=== PATIENT | male | born 1970 | race Caucasian/White ===

== ENCOUNTER 2022-10-31 21:49 | Inpatient (IN) | payer OTHER ==
[~2022-10-31] VITALS: Ht 167.6 cm; Wt 59.9 kg
--- NOTE | 2022-10-31 22:03 | NUR ---
Dr. Lawrence evaluated patient at bedside. MSE in progress.
[2022-10-31] MEDS ORDERED: ASPIRIN 81 MG TAB.CHEW PO ONE (22:15)
[2022-10-31] MEDS ORDERED: ASPIRIN 81 MG TAB.CHEW ONE (22:18)
[2022-10-31 22:27] LABS: HEMATOCRIT 42.3 % (36.7-47.1); MEAN CORPUSCULAR HEMOGLOBIN 29.6 uug (23.8-33.4); MEAN CORPUSCULAR VOLUME 88.8 fL (73.0-96.2); PLATELET COUNT (AUTO) 311 K/uL (152-348)
--- NOTE | 2022-10-31 22:37 | NUR ---
Xray at bedside
[2022-10-31 22:41] LABS: MAGNESIUM 1.9 mg/dL (1.8-2.4)
[2022-10-31 22:44] LABS: CARBON DIOXIDE 21 mmol/L (21-32); CHLORIDE 107 mmol/L (98-107); CREATININE 1.4 mg/dL (0.6-1.3); GLUCOSE 127 mg/dL (74-106); POTASSIUM 4.6 mmol/L (3.5-5.1); UREA NITROGEN, BLOOD 20 mg/dL (7-18)
[2022-10-31 22:53] LABS: THYROID STIMULATING HORMONE 3.241 mIU/mL (0.358-3.740)
[2022-10-31] MEDS ORDERED: MAGNESIUM SULFATE/D5W 100 ML ONE ×2 (23:00→23:21)
[2022-10-31] MEDS ORDERED: IV NS 1000 ML 1,000 ML IV ONE (23:00)
[2022-10-31 23:03] LABS: ALANINE AMINOTRANSFERASE 140 U/L (16-63); ALKALINE PHOSPHATASE 71 U/L (50-136); ASPARTATE AMINOTRANSFERASE 57 U/L (15-37); BILIRUBIN,DIRECT 0.4 mg/dL (0.0-0.2); BILIRUBIN,TOTAL 1.3 mg/dL (0.2-1.0); TOTAL PROTEIN, SERUM 6.6 g/dL (6.4-8.2)
[2022-10-31] MEDS: MAGNESIUM SULFATE/D5W 100 ML IV SCH (23:05)
[2022-11-01] MEDS: MAGNESIUM SULFATE/D5W 100 ML IV SCH ×2 (00:22)
--- NOTE | 2022-11-01 01:15 | NUR ---
Patient has been accepted by Mike CARLSON
[2022-11-01] MEDS ORDERED: NITROGLYCERIN 0.4 MG/TAB BOTTLE SL PRN (01:30)
[2022-11-01] MEDS ORDERED: REMEDY ESSENTIAL ZINC PASTE 113 GM TP PRN (01:30)
[2022-11-01] MEDS ORDERED: ONDANSETRON 4 MG/2 ML VIAL IV PRN (01:30)
[2022-11-01] MEDS ORDERED: HYDROCODONE/APAP 5-325MG TABLET PO PRN (01:30)
[2022-11-01] MEDS ORDERED: MORPHINE SULFATE 2 MG/1 ML DISP.SYRIN IV PRN ×2 (01:30→05:52)
[2022-11-01] MEDS ORDERED: TEMAZEPAM 15 MG CAPSULE PO PRN (01:30)
[2022-11-01] MEDS ORDERED: FUROSEMIDE 40 MG/4 ML VIAL IV ONE (01:30)
[2022-11-01] MEDS ORDERED: FUROSEMIDE 40 MG/4 ML VIAL ONE (01:31)
--- NOTE | 2022-11-01 02:18 | NUR ---
Report given to Deng BERMUDEZ.
--- NOTE | 2022-11-01 03:54 | NUR ---
Patient taken to third floor room 314 via gurney with personal belongings. Patient in stable condition, no signs of distress. Deng RN aware of patients arrival.
[2022-11-01 04:00] VITALS: BP 117/87
[2022-11-01] MEDS ORDERED: ENOXAPARIN SODIUM 40 MG/0.4 ML DISP.SYRIN SQ SCH (04:00)
[2022-11-01] MEDS ORDERED: no home meds (04:09)
[2022-11-01] MEDS: PANTOPRAZOLE SODIUM 40 MG TABLET.DR PO SCH (06:38)
[2022-11-01 07:27] LABS: MAGNESIUM 2.2 mg/dL (1.8-2.4); PHOSPHOROUS 4.7 mg/dL (2.5-4.9)
[2022-11-01 07:28] LABS: *AMPHETAMINE, URINE NEGATIVE (NEGATIVE); *CANNABINOID, URINE NEGATIVE (NEGATIVE); *COCCAINE, URINE NEGATIVE (NEGATIVE); *PHENCYCLIDINE SCREEN,URINE NEGATIVE (NEGATIVE)
--- NOTE | 2022-11-01 08:12 | NUR ---
critical lab value reported from lab. Trop-101. dr. mcclendon made aware. Addendum: 11/01/22 at 0953 by ZIA GIL RN odin patel
[2022-11-01] MEDS: FUROSEMIDE 40 MG/4 ML VIAL IV SCH ×2 (08:30→17:15)
[2022-11-01] MEDS: ASPIRIN 81 MG TAB.CHEW PO SCH (08:31)
[2022-11-01] MEDS: ENOXAPARIN SODIUM 40 MG/0.4 ML DISP.SYRIN SQ SCH (08:33)
[2022-11-01] MEDS ORDERED: FUROSEMIDE 40 MG/4 ML VIAL IV SCH (09:00)
[2022-11-01 09:55] LABS: THYROID STIMULATING HORMONE 3.983 mIU/mL (0.358-3.740)
[2022-11-01 09:57] LABS: CREATININE 1.2 mg/dL (0.6-1.3); POTASSIUM 4.9 mmol/L (3.5-5.1)
[2022-11-01 11:21] VITALS: BP 112/78
--- NOTE | 2022-11-01 15:22 | NUR ---
critical lab value reported. trop-216. dr. mcclendon made aware. no new order at this time.
--- NOTE | 2022-11-01 15:27 | NUR ---
1. Addendum: 11/01/22 at 1528 by ZIA GIL RN 1.2 L fluid restriction and strict I&O per dr. mcclendon
[2022-11-01 16:11] LABS: CREATININE 1.5 mg/dL (0.6-1.3)
[2022-11-01 16:34] VITALS: BP 142/49
[2022-11-01 16:48] LABS: HEMATOCRIT 39.5 % (36.7-47.1); MEAN CORPUSCULAR HEMOGLOBIN 29.7 uug (23.8-33.4); MEAN CORPUSCULAR VOLUME 89.9 fL (73.0-96.2); PLATELET COUNT (AUTO) 267 K/uL (152-348)
--- NOTE | 2022-11-01 19:41 | NUR ---
pt aox4. denies any pain. ambulatory. still on lasix 40mg iv bid. good urine output. all needs attended. safety measure in placed. will endorsed to noc shift.
[2022-11-01 20:00] VITALS: BP 113/84
[2022-11-01] MEDS: ATORVASTATIN 40 MG TABLET PO SCH (20:17)
[2022-11-01] MEDS: MAGNESIUM HYDROXIDE 30 ML LIQUID UDC PO PRN (21:44)
--- NOTE | 2022-11-01 22:30 | NUR ---
Pt complained of nausea and dizziness. Administered Zofran as ordered. Pt also complained of constipation. Given Milk of magnesia as ordered. After an hour, pt reported relief from the symptoms. Will continue to monitor.
[2022-11-02] VITALS: BP 102/71
[2022-11-02] MEDS: ACETAMINOPHEN 325 MG TABLET PO PRN ×2 (03:30→16:55)
[2022-11-02 04:00] VITALS: BP 126/84
[2022-11-02] MEDS: PANTOPRAZOLE SODIUM 40 MG TABLET.DR PO SCH (06:03)
[2022-11-02 07:01] LABS: BILIRUBIN,TOTAL 0.9 mg/dL (0.2-1.0); CREATININE 1.4 mg/dL (0.6-1.3); MAGNESIUM 2.4 mg/dL (1.8-2.4); PHOSPHOROUS 5.1 mg/dL (2.5-4.9); POTASSIUM 4.9 mmol/L (3.5-5.1); TOTAL PROTEIN, SERUM 6.4 g/dL (6.4-8.2)
--- NOTE | 2022-11-02 07:15 | NUR ---
Received critical lab for Troponin 509. Dr. Carter was made aware. No new orders.
[2022-11-02 08:00] VITALS: BP 131/81
--- NOTE | 2022-11-02 08:00 | NUR ---
Received patient lying in bed awake, alert and oriented. No signs of distress, SR on tele monitor. Pt. on room air saturating at 98%. IV site on left AC intact and clean. No complain made. Needs attended
[2022-11-02] MEDS: ENOXAPARIN SODIUM 40 MG/0.4 ML DISP.SYRIN SQ SCH (08:26)
[2022-11-02] MEDS: ASPIRIN 81 MG TAB.CHEW PO SCH (08:27)
[2022-11-02] MEDS: FUROSEMIDE 40 MG/4 ML VIAL IV SCH ×2 (08:27→20:49)
[2022-11-02] MEDS ORDERED: FUROSEMIDE 40 MG/4 ML VIAL IV SCH (09:00)
--- NOTE | 2022-11-02 09:00 | NUR ---
Medications given and tolerated. Seen and examined by Dr. Malloy with orders made and carried out
--- NOTE | 2022-11-02 09:33 | NUR ---
ceart and BUN high for CT Angio Chest. In formed RN.
[2022-11-02] MEDS ORDERED: SWABABLE VALVE TRANSFER SET EA MC ONE (09:42)
[2022-11-02] MEDS ORDERED: IOHEXOL 350 100 ML INFUS..BTL ONE (09:42)
[2022-11-02] MEDS ORDERED: IV NORMAL SALINE 250 ML IV ONE (09:42)
--- NOTE | 2022-11-02 10:04 | NUR ---
consult requested to assess patient's living situation. Patient is a 52 year old male that presents with depressed mood and congruent affect. Patient states his primary contact is the patient's significant other, Emilee Cruz ([phone]) and the patient lives with her at [address] [place] [address] in a one story house. Patient states he is currently unemployed and not driving. Patient denies a history of substance abuse and a history of psychiatric diagnosis. The toxicology report is negative. Patient denies suicidal or homicidal ideation. Patient states his plan for discharge is for his significant other Emilee Cruz ([phone]) take him home to [address] [place] [address].
--- NOTE | 2022-11-02 10:11 | NUR ---
RN TO CALL RADIOLOGY DEPARTMENT WHEN PT IS READY
--- NOTE | 2022-11-02 10:29 | NUR ---
ORDER TO CHANGE FFOR SATURDAY. PER CONVERSATION WITH PATIENT SAYING TO DO SATURDAY
--- NOTE | 2022-11-02 10:29 | NUR ---
COMPOSING ROOM SUPERVISOR HAS BEEN NOTIFIED, AND I TRANSFERRED HER CALL TO THIRD FLOOR TO SPEAK TO THE PATIENT'S NURSE.
--- NOTE | 2022-11-02 11:40 | NUR ---
Patient for Pulmonary VQ scan, signed consent for the procedure. Brought to nuclear medicine via wheel chair.
[2022-11-02 11:43] VITALS: BP 124/83
--- NOTE | 2022-11-02 12:30 | NUR ---
Patient with strict I and O monitoring and fluid restriction of 1.2L/day. Monitored patient from time to time. Needs attended, no acute changes from morning assessment.
[2022-11-02 15:50] VITALS: BP 115/83
--- NOTE | 2022-11-02 16:50 | NUR ---
Patient complaining of mild pain on the chest area pain score of 5, Tylenol 650mg tab given as ordered. Observed patient accordingly. Keep rested and comfortable.
[2022-11-02 20:00] VITALS: BP 127/80
[2022-11-02] MEDS: ATORVASTATIN 40 MG TABLET PO SCH (20:49)
[2022-11-02] MEDS ORDERED: FUROSEMIDE 20 MG/2 ML VIAL IV SCH (21:00)
[2022-11-03] VITALS: BP 109/73
[2022-11-03 04:00] VITALS: BP 100/72
[2022-11-03] MEDS: PANTOPRAZOLE SODIUM 40 MG TABLET.DR PO SCH (06:13)
[2022-11-03 07:09] LABS: HEMATOCRIT 45.6 % (36.7-47.1); MEAN CORPUSCULAR VOLUME 88.7 fL (73.0-96.2); PLATELET COUNT (AUTO) 320 K/uL (152-348)
[2022-11-03] MEDS: FUROSEMIDE 40 MG/4 ML VIAL IV SCH (08:12)
[2022-11-03] MEDS: ASPIRIN 81 MG TAB.CHEW PO SCH (08:12)
[2022-11-03] MEDS: ENOXAPARIN SODIUM 40 MG/0.4 ML DISP.SYRIN SQ SCH (08:13)
[2022-11-03 09:01] LABS: BILIRUBIN,TOTAL 1.3 mg/dL (0.2-1.0); CREATININE 1.5 mg/dL (0.6-1.3); MAGNESIUM 2.7 mg/dL (1.8-2.4); PHOSPHOROUS 4.6 mg/dL (2.5-4.9); POTASSIUM 5.3 mmol/L (3.5-5.1); TOTAL PROTEIN, SERUM 7.5 g/dL (6.4-8.2)
[2022-11-03] MEDS: METOPROLOL SUCCINATE XL 25 MG TAB.SR.24H PO SCH (10:05)
[2022-11-03] MEDS ORDERED: SODIUM POLYSTYRENE SULFONATE 15 G/60 ML LIQUID UDC PO ONE (11:15)
[2022-11-03 12:15] VITALS: BP 98/66
[2022-11-03 16:19] VITALS: BP 108/77
[2022-11-03 20:00] VITALS: BP 103/69
--- NOTE | 2022-11-03 20:00 | NUR ---
RECD PT IN BED, ON A SITTING POSITION, NO ACUTE DISTRESS NOTED, FAMILY AT BEDSIDE, ON TELE SINUS TACH 100,STRICT I AND O OBSERVED
[2022-11-03] MEDS: ATORVASTATIN 40 MG TABLET PO SCH (20:22)
--- NOTE | 2022-11-04 | NUR ---
NO C/O CHEST PAIN, AMBULATEDAROUND THE ROOM, TOLERATED IT WELL,STILL ON TELE SR 88.
[2022-11-04 00:22] VITALS: BP 95/65
[2022-11-04] MEDS: ACETAMINOPHEN 325 MG TABLET PO PRN (01:18)
--- NOTE | 2022-11-04 01:28 | NUR ---
MEDICATED W/ TYLENOL 2 TABS P.O. ORDERED FOR HEADACHE.COPMLIANT TO STRICT INTAKE AND OUTPUT REGIMEN. SLEPT ON AND OFF.
--- NOTE | 2022-11-04 03:54 | NUR ---
SOUND ASLEEP AT THIS TIME. NO DISTRESS NOTED, ON TELE SR 88, ASYMPTOMATIC FROM ANY SSX OF CHEST PAIN /
[2022-11-04 06:09] LABS: HEMATOCRIT 46.1 % (36.7-47.1); MEAN CORPUSCULAR HEMOGLOBIN 29.4 uug (23.8-33.4); MEAN CORPUSCULAR VOLUME 88.7 fL (73.0-96.2); PLATELET COUNT (AUTO) 288 K/uL (152-348)
--- NOTE | 2022-11-04 06:13 | NUR ---
ENDORSED TO AM NURSE IN FAIR CONDITION.HEADACHE WAS RELIEVED. HAD A QUIET NOC..
[2022-11-04] MEDS: PANTOPRAZOLE SODIUM 40 MG TABLET.DR PO SCH (06:20)
[2022-11-04 06:30] LABS: BILIRUBIN,TOTAL 1.2 mg/dL (0.2-1.0); CREATININE 1.2 mg/dL (0.6-1.3); MAGNESIUM 2.6 mg/dL (1.8-2.4); PHOSPHOROUS 4.4 mg/dL (2.5-4.9); POTASSIUM 4.5 mmol/L (3.5-5.1); TOTAL PROTEIN, SERUM 7.4 g/dL (6.4-8.2)
--- NOTE | 2022-11-04 07:10 | NUR ---
pt received in bed awake no c/o pain noted call light with in reach ,all needs met at this time we will continue to monitor
[2022-11-04] MEDS: ASPIRIN 81 MG TAB.CHEW PO SCH (08:25)
[2022-11-04] MEDS: FUROSEMIDE 40 MG TABLET PO SCH (08:25)
[2022-11-04] MEDS: METOPROLOL SUCCINATE XL 25 MG TAB.SR.24H PO SCH (08:25)
[2022-11-04] MEDS: ENOXAPARIN SODIUM 40 MG/0.4 ML DISP.SYRIN SQ SCH (08:26)
[2022-11-04 12:00] VITALS: BP 106/74
[2022-11-04 16:00] VITALS: BP 101/58
--- NOTE | 2022-11-04 16:50 | NUR ---
pt came to the nursing station asking water for the pt went with cup of water to the pt room ,pt and hid said no not cup of water he wants full pitcher of water try to explain to the pt and his pt is on 1200 fluids restriction pt get very upset and start saying in anger i know what i needs to do then pt in anger start talk to his in his language
--- NOTE | 2022-11-04 17:42 | NUR ---
pt is on 1200 fluids restriction and pt is on strict in take out put pt is refusing to follow the md orders ,try to explain to the pt,instruction for cta heart do not drink [id number] hrs before the test pt is getting upset and yelling and cursing bad word and saying get the fuck out of here who are you telling me this i am dying with the heart problem i dont care i will eat and drink water charge nurse and nursing explosive operator supervisor notified.
[2022-11-04 18:42] VITALS: BP 123/80
--- NOTE | 2022-11-04 18:47 | NUR ---
student nurse came to nursing station and reported that patient fell on floor. this copywriter went to room to assess the patient, patient was already in bed, laying down on bed comfortably, no sob, respirations are even nonlabored, sinus rhythm, no changes noted on tele monitor, skin warm and dry to touch, asked patient to follow the neuro check, patient is looking funny on us and does not want to follow the neuro check, however responsive to verbal stimuli, vitals take bp 123/80, pulse 99, respirations 18, o2 sat 100% room air, and all extremities are with in normal range, denies any pain, no clinical indication for any injury. MD Carter notified. patient also ate food from outside, ordered himself, non compliant with diet restrictions, even upon teaching and reminding multiple times.
[2022-11-04 19:00] VITALS: BP 120/80
[2022-11-04 20:00] VITALS: BP 114/73
[2022-11-04] MEDS: ATORVASTATIN 40 MG TABLET PO SCH (20:07)
--- NOTE | 2022-11-04 20:10 | NUR ---
REASSESSED PATIENT. PATIENT SITTING IN CHAIR NEXT TO BEDSIDE. ASK THE PATIENT THE PATIENT IF HE IS DOING OKAY. PATIENT STATED "YES." SPEECH WAS CLEAR. NO COMPLAINT OF PAIN. NO DIZZINESS REPORTED. ALL NEEDS MET AT THIS TIME. ENDORSED CARE TO ASSISTANT PROFESSOR OF MARINE BIOLOGY RN.
[2022-11-04 21:49] LABS: HEMATOCRIT 45.5 % (36.7-47.1); MEAN CORPUSCULAR HEMOGLOBIN 29.2 uug (23.8-33.4); MEAN CORPUSCULAR VOLUME 88.6 fL (73.0-96.2); PLATELET COUNT (AUTO) 311 K/uL (152-348)
[2022-11-04 22:09] LABS: CREATININE 1.3 mg/dL (0.6-1.3); POTASSIUM 4.6 mmol/L (3.5-5.1)
--- NOTE | 2022-11-04 22:30 | NUR ---
Seen pt laying on the bed. Alert and oriented x 3. Slow to speech but answers correctly. Per , pt is unable to recognize his children and slurring of speech. Daughter and 's sister at bedside as well. is stating that pt is having a stroke. Assessed pt for stroke. PERRLA, no slurred speech, no facial drooping, able to answer how many fingers, no blurred vision, able to ambulate to the bathroom, has stable gait, able to move upper and lower extremities, no numbness or weakness noted. Vital signs stable. No changes on Tele. SR with HR of 92. On room air, no respiratory distress noted. Denies pain or discomfort. Asked how he is feeling, answered he was okay. Another RN did the same assessment. Jalil CARLSON made aware. Ordered for STAT CT head, CXR, labs. Called [facility] for stat procedures, spoke to Jose, called lab for stat labs. Explained to what the doctor ordered. wants to transfer pt to a different hospital. Explained to her the process. Also spoke to the locomotive supervisor, also explained the process again. is calling the insurance. CT head, CXR , labs are done and pending for results. Product Marketing Manager also did the neuro check. Pt able to answer the questions correctly to name, date, place, name of the president and no weakness noted. Will continue to monitor. Safety precautions maintained.
[2022-11-04 23:06] LABS: *BILIRUBIN,URIN NEGATIVE (NEGATIVE); *BLOOD, URINE NEGATIVE (NEGATIVE); *CLARITY,URINE CLEAR (CLEAR); *COLOR,URINE YELLOW (YELLOW); *KETONES,URINE NEGATIVE (NEGATIVE); LEUKOCYTE ESTERASE ,URINE NEGATIVE (NEGATIVE); NITRITE, URINE NEGATIVE (NEGATIVE); UGLUCOSE NEGATIVE (NEGATIVE)
[2022-11-04 23:07] LABS: BACTERIA,URINE NONE SEEN /HPF (NONE SEEN); RBC,URINE 0-3 /HPF (0-3); SQUAMOUS EPITHELIAL CELL,UR NONE SEEN /HPF (NONE SEEN); WBC,URINE 0-3 /HPF (0-3)
[2022-11-05] VITALS: BP 110/75
--- NOTE | 2022-11-05 00:30 | NUR ---
is at bedside. Waiting for results stated that she wouldn't leave until there's a result or with the pt to transfer him to a different hospital. Informed pt and of CT head, CXR and labs result. is raising her voice saying but why is her worse than he was. RN performed neuro check again. Pt now keeps on answering I don't know to my questions. I reported this to Mike CARLSON Epic associate professor of education at this time. All test has already been done no other tests will be done unless the previous CT showed otherwise. Went back to the room explaining this to them. Patient began explaining to me what went on during the day when they had an argument with the nurse saying his side of the story asking if it was documented and he wants his to stay with him tonight. stated that she wouldn't leave the pt to keep an eye on him. asked me to tell egg caser that she is waiting for him to start the transfer. Per Mike CARLSON, If pt's family insisted they can sign AMA. All needs attended.
[2022-11-05 04:00] VITALS: BP 93/66
[2022-11-05] MEDS: PANTOPRAZOLE SODIUM 40 MG TABLET.DR PO SCH (06:16)
[2022-11-05 07:11] LABS: HEMATOCRIT 44.3 % (36.7-47.1); MEAN CORPUSCULAR HEMOGLOBIN 29.1 uug (23.8-33.4); MEAN CORPUSCULAR VOLUME 89.2 fL (73.0-96.2); PLATELET COUNT (AUTO) 304 K/uL (152-348)
[2022-11-05 07:42] LABS: BILIRUBIN,TOTAL 0.8 mg/dL (0.2-1.0); CREATININE 1.1 mg/dL (0.6-1.3); POTASSIUM 4.6 mmol/L (3.5-5.1); TOTAL PROTEIN, SERUM 7.3 g/dL (6.4-8.2)
--- NOTE | 2022-11-05 07:45 | NUR ---
Awake, alert, oriented x 4. Denies chest pain or shortness of breath. Feeling anxious. at bedside. Re instructed of NPO. Agreeable with CTA cardiac.
[2022-11-05] MEDS: ASPIRIN 81 MG TAB.CHEW PO SCH (09:11)
[2022-11-05] MEDS: FUROSEMIDE 40 MG TABLET PO SCH (09:11)
[2022-11-05] MEDS: METOPROLOL SUCCINATE XL 25 MG TAB.SR.24H PO SCH (09:12)
[2022-11-05 10:02] LABS: *AMPHETAMINE, URINE NEGATIVE (NEGATIVE); *CANNABINOID, URINE NEGATIVE (NEGATIVE); *COCCAINE, URINE NEGATIVE (NEGATIVE); *PHENCYCLIDINE SCREEN,URINE NEGATIVE (NEGATIVE)
[2022-11-05 11:39] VITALS: BP 99/67
--- NOTE | 2022-11-05 11:45 | NUR ---
Urine Tox screen sent to lab. NPO maintained. To [facility] via ambulance for MRI Brain and CTA cardiac
--- NOTE | 2022-11-05 14:40 | NUR ---
Back from [facility]. MRI brain and CTA cardiac done. Placed back on [facility]. Neuro checks done. Vital signs taken and recorded. Swallow eval done. Diet resumed.
[2022-11-05 15:34] VITALS: BP 119/86
[2022-11-05 16:29] LABS: THYROID STIMULATING HORMONE 5.327 mIU/mL (0.358-3.740)
[2022-11-05] MEDS: APIXABAN 5 MG TABLET PO SCH (17:48)
--- NOTE | 2022-11-05 17:57 | NUR ---
Seen by neurologist, explained condition to patient and . Cleared to give Eliquis, started.
[2022-11-05] MEDS: MAGNESIUM HYDROXIDE 30 ML LIQUID UDC PO PRN (18:48)
[2022-11-05] MEDS: MIRALAX 17 GM POWD.PACK PO PRN (19:15)
--- NOTE | 2022-11-05 19:15 | NUR ---
No BM x 2 days. Miralax po given as ordered. Endorsed for further care
[2022-11-05 20:00] VITALS: BP 101/72
[2022-11-05] MEDS: ATORVASTATIN 40 MG TABLET PO SCH (21:54)
[2022-11-06] VITALS: BP 93/69
[2022-11-06 04:00] VITALS: BP 100/75
[2022-11-06] MEDS: PANTOPRAZOLE SODIUM 40 MG TABLET.DR PO SCH (06:24)
[2022-11-06 06:58] LABS: MEAN CORPUSCULAR HEMOGLOBIN 29.3 uug (23.8-33.4); MEAN CORPUSCULAR VOLUME 88.1 fL (73.0-96.2); PLATELET COUNT (AUTO) 333 K/uL (152-348)
[2022-11-06 07:26] LABS: BILIRUBIN,TOTAL 1.1 mg/dL (0.2-1.0); CREATININE 1.3 mg/dL (0.6-1.3); POTASSIUM 4.8 mmol/L (3.5-5.1); TOTAL PROTEIN, SERUM 7.9 g/dL (6.4-8.2)
--- NOTE | 2022-11-06 07:30 | NUR ---
REPORT GIVEN TO LARA SHETH
[2022-11-06 09:36] VITALS: BP 110/74
[2022-11-06] MEDS: FUROSEMIDE 40 MG TABLET PO SCH (09:38)
[2022-11-06] MEDS: METOPROLOL SUCCINATE XL 25 MG TAB.SR.24H PO SCH (09:39)
[2022-11-06] MEDS: APIXABAN 5 MG TABLET PO SCH (09:40)
--- NOTE | 2022-11-06 11:02 | NUR ---
SW consult requested for stroke resources. Patient presents with anxious mood and congruent affect. Patient is alert and oriented X4. Patient was with his at bedside during the assessment. SW completed a PHQ 9 Screening with the patient, and he scored a 1. Patient states he had trouble sleeping last night. SW provided stroke education and give stroke resources. SW placed resources in patients chart. SW provided the patient with information about applying for disability as well. SW provided emotional support, validation, and coping strategies and the patient states taoism is very important to him.
[2022-11-06 11:34] VITALS: BP 110/60
--- NOTE | 2022-11-06 12:01 | NUR ---
SW consult requested for IHSS information. SW spoke with the patient and the patient's at bedside and provided them with the application for IHSS and information on how to fill it out and where to submit the application. Patient was appreciative of the resource and SW informed nurse, Rashel.
[2022-11-06] MEDS ORDERED: FURO40TA5 PO (13:21)
[2022-11-06] MEDS ORDERED: APIX5TAB PO (13:21)
[2022-11-06] MEDS ORDERED: METO-356 PO (13:21)
[2022-11-06] MEDS ORDERED: ATOR40TA PO (13:21)
--- NOTE | 2022-11-06 14:41 | NUR ---
FIDENCIO from [employer] state LifeVest will delivered and fitted to pt around [phone] today
--- NOTE | 2022-11-06 14:42 | NUR ---
pt and family refused home health and SNF placement per CM.
[2022-11-06] MEDS: MAGNESIUM HYDROXIDE 30 ML LIQUID UDC PO PRN (14:53)
[2022-11-06] MEDS: MIRALAX 17 GM POWD.PACK PO PRN (14:53)
[2022-11-06 16:00] VITALS: BP 91/64
--- NOTE | 2022-11-06 16:18 | NUR ---
Pt was evaluated by PT,OT and ST. pt was able to walk with standby assist. mild weakness on lower extremities. mild aphasia noted. pt passed swallow eval, pt able tolerated regular diet. pt was seen by hospitalist, keno writer / runner and neurologist. pt is medically clear for discharge. [employer] was ordered by keno writer / runner. pt will not be Discharge without lifevest per keno writer / runner. CM spoke with the pt daughter regarding Home Health or SNF placement but pt and daughter refused home home health and placement. Pt was instructed to f/u with PCP and CT scan of brain in 1week after discharge as outpatient.
--- NOTE | 2022-11-06 19:05 | NUR ---
pt is discharge. aox4. in no acute distress. nihss score of 1. ambulatory. self care. stroke education was given to the pt. exit care provided. discharge instruction was reviewed with the pt. pt verbalized understanding. pt was fitted with life vest. pt was educated how to use the life vest. pt will go home with the daughter via private car. pt and pt family refused home health and SNF placement per CM. all med record was given to pt family. iv site removed. all belongings accounted for. pt was accompanied by PRINTED CIRCUIT BOARDS ROUTER to their car.
== END 2022-11-06 19:00 | disposition home or self-care (01) | DRG 194 ==
LOC: ER 21:49 → TELE3 11-01 01:30
PROVIDERS: ADMIT Nurse Practitioner Acute Care; ATTEND Internal Medicine
DX: I50.41 Acute combined systolic (congestive) and diastolic (congestive) heart failure (principal); N17.0 Acute kidney failure with tubular necrosis; I21.4 Non-ST elevation (NSTEMI) myocardial infarction; I63.10 Cerebral infarction due to embolism of unspecified precerebral artery; I44.7 Left bundle-branch block, unspecified; R00.0 Tachycardia, unspecified; R29.700 NIHSS score 0; R73.9 Hyperglycemia, unspecified; E78.5 Hyperlipidemia, unspecified; I42.0 Dilated cardiomyopathy; I34.0 Nonrheumatic mitral (valve) insufficiency; E87.20 Acidosis, unspecified; Z82.49 Family history of ischemic heart disease and other diseases of the circulatory system; F17.211 Nicotine dependence, cigarettes, in remission; Z86.16 Personal history of COVID-19; Z20.822 Contact with and (suspected) exposure to COVID-19
CPT/HCPCS: 36415; 70450; 70551; 71045; 78579; 83605; 83735; 84100; 84443; 84484; 85025; 85651; 85730; 93005; 93307; 93880; A4663; A9540; G0378; J1650; J1940; J2405; J3475; J7040; Q9967